=== PATIENT | female | born 1935 | race African-American/Black ===

== ENCOUNTER 2022-08-10 04:00 | Inpatient (IN) | payer MEDICARE, OTHER ==
[~2022-08-10] VITALS: Ht 162.6 cm; Wt 44.0 kg
--- NOTE | 2022-08-10 04:05 | NUR ---
[id number] FRM HOME "DAUGHTER FOUND PT CLEANING THE HOUSE AT 2AM WITH ALL WINDOWS OPEN. "CONCERNED ABOUT BEING COLD. HX OF DEMENTIA. PATIENT IS AAOX2. HYPOTHERMIC WITH T=84.4 RECTALLY. ATTACHED TO MONITOR. VITALS CHECKED
--- NOTE | 2022-08-10 04:26 | NUR ---
BRAVO DEE PROVIDED TO WARM UP THE PATIENT.
--- NOTE | 2022-08-10 04:26 | NUR ---
IV CANNULA G20 INSERTED ON LEFT FA. BLOOD DRAWN AND SENT TO LAB
[2022-08-10 04:48] LABS: BASOPHILS % (AUTO) 0.7 % (0.0-2.0); EOSINOPHILS % (AUTO) 0.4 % (0.0-6.0); HEMATOCRIT 38 % (33-45); HEMOGLOBIN 12.3 g/dL (11.5-14.8); LYMPHOCYTES # (AUTO) 0.3 K/uL (0.8-4.8); LYMPHOCYTES % (AUTO) 19.6 % (20.0-44.0); MEAN CORPUSCULAR HGB CONC 33 g/dl (31.0-36.0); MEAN CORPUSCULAR VOLUME 87 fL (82-100); MONOCYTES # (AUTO) 0.1 K/uL (0.1-1.30); MONOCYTES % (AUTO) 8.2 % (2.0-12.0); NEUTROPHILS # (AUTO) 1.3 K/uL (1.8-8.9); NEUTROPHILS % (AUTO) 71.1 % (43.0-81.0); PLATELET COUNT (AUTO) 173 K/uL (150-450); RED BLOOD CELL COUNT(AUTO) 4.36 MIL/uL (4.0-5.2)
[2022-08-10 04:55] LABS: WHITE BLOOD COUNT (AUTO) 1.8 K/uL (4.3-11.0)
--- NOTE | 2022-08-10 05:00 | NUR ---
CAME BACK FROM CT DEPT
[2022-08-10 05:11] LABS: CALCIUM, SERUM 9.5 mg/dL (8.5-10.1); CARBON DIOXIDE 27 mmol/L (21-32); CHLORIDE 109 mmol/L (98-107); GLUCOSE 172 mg/dL (74-106); POTASSIUM 4.2 mmol/L (3.5-5.1); SODIUM SERUM 142 mmol/L (136-145); UREA NITROGEN, BLOOD 35 mg/dL (7-18)
[2022-08-10 05:24] LABS: ALANINE AMINOTRANSFERASE 174 U/L (12-78); ALKALINE PHOSPHATASE 218 U/L (46-116); ASPARTATE AMINOTRANSFERASE 204 U/L (15-37); BILIRUBIN,DIRECT 0.2 mg/dL (0.0-0.2); BILIRUBIN,TOTAL 0.4 mg/dL (0.2-1.0); TOTAL PROTEIN, SERUM 7.7 g/dL (6.4-8.2)
--- NOTE | 2022-08-10 05:49 | NUR ---
COVID SWAB DONE AND SENT TO LAB
--- NOTE | 2022-08-10 05:58 | NUR ---
CALLED [facility] MORROW AND PAGEMikhail NEUMANN MD
[2022-08-10] MEDS ORDERED: LEVOFLOXACIN 500 MG /D5W 100ML 500 MG/100 ML PIGGYBACK IV ONE (06:00)
[2022-08-10] MEDS ORDERED: LEVOFLOXACIN 500 MG /D5W 100ML 100 ML IV ONE (06:50)
--- NOTE | 2022-08-10 07:02 | NUR ---
DR ORR ON THE PHONE WITH [facility]
--- NOTE | 2022-08-10 07:10 | NUR ---
PT FOR TRANSFER TO [place]. WAITING FOR TRANSPO. DAUGHTER MADE AWARE
--- NOTE | 2022-08-10 07:26 | NUR ---
REPORT GIVEN TO JOHNATHAN HARVEY
[2022-08-10 07:57] LABS: BAND % (MANUAL) 4 % (0.0-5.0); LYMPHOCYTES % (MANUAL) 22 % (16-48); MONOCYTES % (MANUAL) 6 % (0-11.0); NEUTROPHILS % (MANUAL) 68 (42-76)
--- NOTE | 2022-08-10 08:04 | NUR ---
POSITIVE COVID RESULT RELAYED BY SUPERVISOR STAGE CARPENTRY. MADE AWARE. WILL UPDATE [facility] OF THE INFORMATION.
--- NOTE | 2022-08-10 08:11 | NUR ---
CALLED [facility] [phone] DR. BALDWIN WILL CALL US BACK.
[2022-08-10] MEDS ORDERED: IV NS 0.9% 1,000 ML IV ONE (08:30)
--- NOTE | 2022-08-10 08:30 | NUR ---
BEN BLACK NP, SEEN PT AT BEDSIDE
[2022-08-10] MEDS ORDERED: MAG HYDROX/AL HYDROX/SIMETH 30 ML UDC PO PRN (09:00)
[2022-08-10] MEDS ORDERED: MAGNESIUM HYDROXIDE 30 ML UDC PO PRN (09:00)
[2022-08-10] MEDS ORDERED: ACETAMINOPHEN 325 MG TABLET PO PRN (09:00)
[2022-08-10] MEDS ORDERED: PANTOPRAZOLE 40 MG VIAL IV SCH (09:00)
[2022-08-10] MEDS ORDERED: Z GUARD REMEDY 4 OZ OINT TP PRN (09:00)
[2022-08-10] MEDS ORDERED: ONDANSETRON HCL/PF 4 MG/2 ML VIAL IVP PRN (09:00)
[2022-08-10] MEDS ORDERED: ZOLPIDEM TARTRATE 5 MG TABLET PO PRN (09:00)
--- NOTE | 2022-08-10 09:18 | NUR ---
TECH AT BEDSIDE FOR ULTRASOUND
[2022-08-10] MEDS ORDERED: POLY17PO4 PO (09:41)
[2022-08-10] MEDS ORDERED: KETO10DR3 EACHEYE (09:41)
[2022-08-10] MEDS ORDERED: LOSA25TA27 PO (09:41)
[2022-08-10] MEDS ORDERED: POLY15DR40 EACHEYE (09:41)
[2022-08-10] MEDS ORDERED: PILO5TAB10 PO (09:41)
[2022-08-10] MEDS ORDERED: LINA290C PO (09:41)
[2022-08-10] MEDS ORDERED: BISA10SU11 RC (09:41)
[2022-08-10] MEDS ORDERED: OMEP-99 PO (09:41)
[2022-08-10] MEDS ORDERED: MULT-24 PO (09:41)
[2022-08-10] MEDS ORDERED: MIRT-90 PO (09:41)
[2022-08-10] MEDS ORDERED: SENN-261 PO (09:41)
--- NOTE | 2022-08-10 09:46 | NUR ---
GOT BED 112-1
--- NOTE | 2022-08-10 10:01 | NUR ---
PT REPORT GIVEN TO JOHNATHAN PINEDA
--- NOTE | 2022-08-10 11:10 | NUR ---
PT TRANSFERRED TO [address] [facility] PROTOC[facility]. WARM HANDOFF GIVEN TO JOHNATHAN PINEDA.
--- NOTE | 2022-08-10 11:10 | NUR ---
DIRECTOR CLINICAL APPLICATIONS NOTES: PT RECEIVED FROM ER STAFF VIA MARYBETH, REPORT BY PHONE RECEIVED FROM JOHNATHAN DODGE. PT IS AWAKE, ALERT/ORIENTED X1-2, NAME AND PERSON. ABLE TO VERBALIZE NEEDS HOWEVER APPEARS CONFUSED AND AGITATED. VITALS WNL: BP- 127/67, HR-76, TEMP- 96.9, O2 SAT- 100%. PT HAS BEAR HUGGER DUE TO INITIAL HYPOTHERMIA AT ER, TEMP WNL AT THIS TIME, WILL CONTINUE TO REASSESS. PT IS ON 4 L OF O2 VIA NC, NO S/S OF RESPIRATORY DISTRESS NOTED. PACEMAKER NOTED AT L UPPER CHEST. TELE MONITOR READS V PACING, HR- 74. IV ACCESS AT L AC # 20, SALINE LOCKED. PT SKIN IS INTACT WITH BLE SKIN DRYNESS NOTED. PT ORIENTED TO STAFF AND UNIT BUT REFUSES TO BE CHANGED TO HOSPITAL GOWN AND STATES HOME CHILD CARE PROVIDER AND RN ARE THE DEVIL, WILL MINIMIZE STIMULI AND REORIENT PT BEFORE ANY INTERVENTION. SAFETY MEASURES IN PLACE, SIDE RAILS UP X4, BED ALARM ON, LOCKED IN LOWEST POSITION, TABLE AND CALL LIGHT WITHIN REACH;L WILL CONT WITH PLAN OF CARE DURING SHIFT.
[2022-08-10] MEDS: ENOXAPARIN SODIUM 30 MG/0.3 ML DISP.SYRIN SQ SCH (11:30)
--- NOTE | 2022-08-10 11:30 | NUR ---
PT REFUSED LOVENOX, STATES " I DON'T NEED NO SHOT, GET THAT AWAY FROM ME", MED RETURNED PER UNIT PROTOCOL.
[2022-08-10] MEDS: CEFEPIME 1 GM in IV D5W 50 ML IV SCH ×2 (12:23→21:59)
[2022-08-10] MEDS: DEXAMETHASONE SOD PHOSPHATE 10 MG/ML VIAL IV SCH (12:24)
[2022-08-10 13:00] VITALS: BP 127/68
--- NOTE | 2022-08-10 15:30 | NUR ---
PT'S IV DISLODGED, PT POSSIBLY PULLED DUE TO CONFUSION, WILL REINSERT.
[2022-08-10] MEDS ORDERED: Medication Not On Formulary EA (Ketotifen Fumarate (Alaway) 1 DROP) EACHEYE PRN (16:30)
[2022-08-10] MEDS ORDERED: POLYVINYL ALCOHOL 15 ML BOTTLE EACHEYE PRN (16:30)
[2022-08-10] MEDS ORDERED: BISACODYL SUPP (10 MG) 10 MG/SUPP.RECT SUPP.RECT RC PRN (16:30)
[2022-08-10] MEDS ORDERED: SENNOSIDES 8.6 MG TABLET PO PRN (16:30)
[2022-08-10] MEDS ORDERED: POLYETHYLENE GLYCOL 3350 17 GM POWD.PACK PO PRN (16:30)
[2022-08-10 17:00] VITALS: BP 124/63
--- NOTE | 2022-08-10 17:00 | NUR ---
INSERTED IV ACCESS AT L FA #22
--- NOTE | 2022-08-10 18:48 | NUR ---
RN CLOSING NOTES: PT IS AWAKE, ALERT/ORIENTED X1-2, NAME AND PERSON. ABLE TO VERBALIZE NEEDS HOWEVER APPEARS CONFUSED AND AGITATED AT TIMES. PT HAS BEAR HUGGER AT BEDSIDE, BUT ONLY USED AT BEGINNING OF SHIFT, TEMP IS STABLE AT 98.0. PT IS ON 4 L OF O2 VIA NC, NO S/S OF RESPIRATORY DISTRESS NOTED. PACEMAKER NOTED AT L UPPER CHEST. TELE MONITOR READS V PACING, HR- 64. IV ACCESS AT L FA# 22, RUNNING NS @ 75ML/HR. FALL AND ASPIRATION PRECAUTIONS IN PLACE. BED ALARM ON, SIDERAILS UP X4, WILL ENDORSE TO PM SHIFT.
[2022-08-10] MEDS: IV NS 0.9% 1,000 ML IV PRN (19:30)
--- NOTE | 2022-08-10 19:30 | NUR ---
PT IS AWAKE, ALERT/ORIENTED X1-2, NAME AND PERSON. ABLE TO VERBALIZE NEEDS HOWEVER APPEARS CONFUSED AND AGITATED AT TIMES. PT IS ON 4 L OF O2 VIA NC, NO S/S OF RESPIRATORY DISTRESS NOTED. PACEMAKER NOTED AT L UPPER CHEST. TELE MONITOR IN PLACE. IV ACCESS ON LFA #22, INFUSING NS @ 75ML/HR. FALL AND ASPIRATION PRECAUTIONS IN PLACE. SAFETY MEASURES IN PLACE. WILL CONTINUE PLAN OF CARE.
[2022-08-10 21:00] VITALS: BP 158/66
[2022-08-10] MEDS: MIRTAZAPINE 15 MG TABLET PO SCH (21:59)
[2022-08-11] VITALS (7 sets, daily range): BP systolic 132–155; BP diastolic 67–84
[2022-08-11] MEDS: IV NS 0.9% 1,000 ML IV PRN (05:02)
--- NOTE | 2022-08-11 06:23 | NUR ---
PT ASLEEP. AWAKEN BY CALLING HER NAME AND BY TOUCH. ALERT/ORIENTED X1-2, ABLE TO VERBALIZE NEEDS HOWEVER APPEARS CONFUSED AT TIMES. PT IS ON 4 L OF O2 VIA NC, NO S/S OF RESPIRATORY DISTRESS NOTED. PACEMAKER NOTED AT L UPPER CHEST. TELE MONITOR IN PLACE. IV ACCESS ON LFA #22, INFUSING NS @ 75ML/HR. FALL AND ASPIRATION PRECAUTIONS IN PLACE. DUE MEDS GIVEN. NEEDS ATTENDED. SAFETY MEASURES MAINTAINED. WILL ENDORSE TO NEXT NURSE ON DUTY FOR CONTINUITY OF CARE.
--- NOTE | 2022-08-11 07:15 | NUR ---
RN NOTE RECEIVED PATIENT IN BED RESTING EYE CLOSED,OPEN WHEN CALLED HER NAME,ON 4L OXYGEN VIA NASAL CANNULA,O2:96% IV SITE IS ON LEFT FOREARM INTACT PATENT ON NS IV HYDRATION 75CC/HR SAFETY MEASURE IMPLEMENT BED IN LOW POSITION AND LOCKED,BED ALARM IS ON CONTINUE TO MONITOR.
[2022-08-11 07:29] LABS: BASOPHILS % (AUTO) 0.3 % (0.0-2.0); EOSINOPHILS % (AUTO) 1.2 % (0.0-6.0); HEMATOCRIT 35 % (33-45); HEMOGLOBIN 11.1 g/dL (11.5-14.8); LYMPHOCYTES # (AUTO) 0.3 K/uL (0.8-4.8); MEAN CORPUSCULAR HGB CONC 32 g/dl (31.0-36.0); MEAN CORPUSCULAR VOLUME 87 fL (82-100); MONOCYTES # (AUTO) 0.2 K/uL (0.1-1.30); MONOCYTES % (AUTO) 10.9 % (2.0-12.0); NEUTROPHILS % (AUTO) 66.6 % (43.0-81.0); PLATELET COUNT (AUTO) 175 K/uL (150-450); RED BLOOD CELL COUNT(AUTO) 4.01 MIL/uL (4.0-5.2)
[2022-08-11 07:36] LABS: WHITE BLOOD COUNT (AUTO) 1.6 K/uL (4.3-11.0)
[2022-08-11 07:44] LABS: ALANINE AMINOTRANSFERASE 118 U/L (12-78); ALBUMIN 2.1 g/dL (3.4-5.0); ALKALINE PHOSPHATASE 167 U/L (46-116); ASPARTATE AMINOTRANSFERASE 131 U/L (15-37); BILIRUBIN,DIRECT 0.1 mg/dL (0.0-0.2); BILIRUBIN,TOTAL 0.4 mg/dL (0.2-1.0); CALCIUM, SERUM 8.4 mg/dL (8.5-10.1); CARBON DIOXIDE 26 mmol/L (21-32); CHLORIDE 112 mmol/L (98-107); CREATININE 0.7 mg/dL (0.6-1.3); MAGNESIUM 2.1 mg/dL (1.8-2.4); PHOSPHORUS 2.5 mg/dL (2.5-4.9); POTASSIUM 3.2 mmol/L (3.5-5.1); SODIUM SERUM 146 mmol/L (136-145); UREA NITROGEN, BLOOD 21 mg/dL (7-18)
[2022-08-11 07:55] LABS: CHOLESTEROL 192 mg/dL (<200); CREATINE KINASE, TOTAL 609 U/L (26-192); FERRITIN 743 ng/mL (8-388); HDL CHOLESTEROL 90 mg/dL (40-60); LDL 94 mg/dL (0-99); TRIGLYCERIDES 41 mg/dL (30-150)
[2022-08-11 07:58] LABS: GLUCOSE 49 mg/dL (74-106)
[2022-08-11] MEDS ORDERED: DEXTROSE 50%-WATER 50 ML DISP.SYRIN IV STA (08:25)
[2022-08-11 08:34] LABS: CREATINE KINASE, TOTAL 612 U/L (26-192)
[2022-08-11 08:35] LABS: ALANINE AMINOTRANSFERASE 127 U/L (12-78); ALBUMIN 2.1 g/dL (3.4-5.0); ALKALINE PHOSPHATASE 168 U/L (46-116); ASPARTATE AMINOTRANSFERASE 131 U/L (15-37); BILIRUBIN,TOTAL 0.4 mg/dL (0.2-1.0); CALCIUM, SERUM 8.4 mg/dL (8.5-10.1); CARBON DIOXIDE 27 mmol/L (21-32); CHLORIDE 113 mmol/L (98-107); CREATININE 0.8 mg/dL (0.6-1.3); POTASSIUM 3.2 mmol/L (3.5-5.1); SODIUM SERUM 146 mmol/L (136-145); UREA NITROGEN, BLOOD 21 mg/dL (7-18)
[2022-08-11] MEDS: DEXAMETHASONE SOD PHOSPHATE 10 MG/ML VIAL IV SCH (08:44)
[2022-08-11] MEDS: ENOXAPARIN SODIUM 30 MG/0.3 ML DISP.SYRIN SQ SCH (08:46)
[2022-08-11] MEDS: LOSARTAN POTASSIUM 25 MG TABLET PO SCH (09:00)
[2022-08-11] MEDS: PANTOPRAZOLE 40 MG/PACK PACK PO SCH (09:00)
[2022-08-11] MEDS: MULTIVITAMINS,THERAGRAN 1 UDTAB TABLET PO SCH (09:00)
--- NOTE | 2022-08-11 09:00 | NUR ---
RN NOTE RECEIVED CRITICAL LAB AT 0800 PT GLUCOSE 48,AT 0802 CHECKED BS BY SELF 39,CALLED DR RECEIVED ORDER FOR D50 IV NOTED AND AND CARRIED OUT.
--- NOTE | 2022-08-11 09:10 | NUR ---
RN NOTE PATENT BS CHECKED AT 810 172 RECHECKED AGAIN AT 823 210 CONTINUE TO MONITOR,PATIENT ANXIOUS REMOVE HER IV LINE,VERY ANXIOUS,AGITATED,PATIENT DAUGHTER CALLED SPOKE WITH HER UPDATED HER MEDICAL CONDITION,CONTINUE TO MONITOR.
[2022-08-11 09:16] LABS: GLUCOSE 48 mg/dL (74-106)
--- NOTE | 2022-08-11 09:30 | NUR ---
PATIENT REFUSED TO TAKE MEDIACTIONS, NOTIFIED
[2022-08-11] MEDS: IV D5/ 0.9% NACL 1,000 ML IV PRN ×2 (10:58→21:52)
[2022-08-11] MEDS ORDERED: POTASSIUM CHLORIDE 20 MEQ POWDER PACKET PO ONE (11:00)
[2022-08-11] MEDS: CEFEPIME 1 GM in IV D5W 50 ML IV SCH ×2 (11:04→20:34)
[2022-08-11] MEDS: POTASSIUM CL. PREMIX PERIPHER. 50 ML IV SCH ×4 (12:00→15:31)
[2022-08-11 16:00] LABS: BAND % (MANUAL) 2 % (0.0-5.0); EOSINOPHILS % (MANUAL) 2 % (0-4); LYMPHOCYTES % (MANUAL) 20 % (16-48); MONOCYTES % (MANUAL) 8 % (0-11.0)
[2022-08-11 16:01] LABS: NEUTROPHILS % (MANUAL) 68 (42-76)
[2022-08-11] MEDS: ENSURE ENLIVE 237 ML LIQUID (VANILLA) PO SCH ×2 (16:30→17:23)
[2022-08-11] MEDS ORDERED: ENSURE ENLIVE CHOC 237 ML CAN PO SCH (16:30)
[2022-08-11] MEDS: APIXABAN 2.5 MG TABLET PO SCH ×2 (17:00→17:18)
[2022-08-11] MEDS: BLOOD SUGAR DIAGNOSTIC 1 EACH STRIP IN SCH ×2 (17:23→22:30)
--- NOTE | 2022-08-11 17:37 | NUR ---
RN NOTE PATIENT REFUSED ENSURE AND ELIQUIS WHEN GAVE TO HER SHE SPIT ON MY FACE,SHE PULLED OUT HER IV LINE NOTIFIED MD CONTINUE TO MONITOR.
--- NOTE | 2022-08-11 18:33 | NUR ---
PATIENT VERY AGITATED TRIED IV RIGHT HAND,PT. PULLED RN WILIAM MURRIETA,DAUGHTER REQUESTING TO CALM DOWN HER MOM,DR. RAINES NOTIFIED OK TO MIDLINE AND RESTRAIN PT. OK FOR DAUGHTER TO VISIT MOTHER FOR 15 MINUTES TO CALM DOWN PT WITH FULL PPE.NURSING SUP NOTIFIED.
--- NOTE | 2022-08-11 18:50 | NUR ---
RN NOTE INSERTED A NEW IV LINE ON RIGHT FOREARM #22 WITH GOOD BLOOD RETURN,DAUGHTER ON HER BEDSIDE,CONTINUE TO MONITOR.
--- NOTE | 2022-08-11 19:14 | NUR ---
RN NOTE PATIENT REMAINS CONFUSED,VERBALLY RESPONSIVE ON 2L OXYGEN VIA NASAL CANNULA,O2:98% IV SITE IS ON RIGHT FOREARM INTACT PATENT,ON NSD5 HYDRATION 75CC/HR,SAFETY MEASURE IMPLEMENT BED IN LOW POSITION AND LOCKED,HEAD OF THE BED ELEVATED,SOFT BILATERAL WRIST RESTRAIN IN PLACE,DAUGHTER AGREE WITH RESTRAINS,ENDORSE NEXT COMING SHIFT FOR CONTINUATION OF CARE.
[2022-08-11] MEDS: MIRTAZAPINE 15 MG TABLET PO SCH (21:31)
[2022-08-12] VITALS: BP 159/79
[2022-08-12 04:00] VITALS: BP 122/55
--- NOTE | 2022-08-12 06:48 | NUR ---
RN CLOSING NOTE PATIENT IN BED, SLEEPING AT THIS TIME, ON 2L OXYGEN VIA NASAL CANNULA WITH OPTIMAL O2 STA DURING THE NIGHT, FIGHTING, SCRATCHING, AND BITTING WHENEVER ATTEMPT TO TAKE VITAL SINGS AND CLEANING, ON BILATERAL RESTRAINS IN PLACED, CIRCULATION WNL, FREQUENT CHECKS DONE, IV SITE IS ON RIGHT FOREARM INTACT PATENT, ANOTHER IV INSERTED ON LEFT HAND 22G PATENT AND INTACT, ON D5 NS 75CC/HR, ALL SAFETY MEASURE MAINTAINED, BED LOCKED AND IN LOWEST POSITION, WILL ENDORSE CONTINUITY OF CARE TO ONCOMING NURSE, DAUGHTER CALLED THIS MORNING, SHE WANTS MOTHER OUT OF THIS HOSPITAL TRANSFER TO [place], WILL ENDORSE TO NEXT SHIFT.
--- NOTE | 2022-08-12 07:10 | NUR ---
RN OPENING NOTE PATIENT IN BED, SLEEPING AT THIS TIME, ON 2L OXYGEN VIA NASAL CANNULA. PER NIGHTSHIFT RN OLGA, PATIENT FIGHTING, SCRATCHING, AND BITTING WHENEVER ATTEMPT TO TAKE VITAL SINGS AND CLEANING. ON BILATERAL RESTRAINS, DISTAL CIRCULATION WITHIN NORMAL LIMITS. IV ACCESS ON RIGHT FOREARM INTACT PATENT, ANOTHER IV INSERTED ON LEFT HAND 22G PATENT AND INTACT, ON D5 NS 75CC/HR. ALL SAFETY MEASURES IMPLEMENTED, BED LOCKED AND IN LOWEST POSITION. PER [facility]SHIFT RN, PATIENTS DAUGHTER WANTS TRANSFER TO [facility], WILL FOLLOW UP WITH CASE MANAGEMENT. WILL CONTINUE PLAN OF CARE AND ANTICIPATE NEEDS.
[2022-08-12 08:00] VITALS: BP 145/68
[2022-08-12] MEDS: ENSURE ENLIVE 237 ML LIQUID (VANILLA) PO SCH (08:00)
[2022-08-12] MEDS: BLOOD SUGAR DIAGNOSTIC 1 EACH STRIP IN SCH ×3 (08:00→16:33)
[2022-08-12 08:06] LABS: BASOPHILS % (AUTO) 0.1 % (0.0-2.0); EOSINOPHILS % (AUTO) 0.1 % (0.0-6.0); HEMATOCRIT 29 % (33-45); HEMOGLOBIN 9.5 g/dL (11.5-14.8); LYMPHOCYTES # (AUTO) 0.4 K/uL (0.8-4.8); LYMPHOCYTES % (AUTO) 9.1 % (20.0-44.0); MEAN CORPUSCULAR HGB CONC 33 g/dl (31.0-36.0); MEAN CORPUSCULAR VOLUME 87 fL (82-100); MONOCYTES # (AUTO) 0.6 K/uL (0.1-1.30); MONOCYTES % (AUTO) 14.4 % (2.0-12.0); NEUTROPHILS # (AUTO) 3.2 K/uL (1.8-8.9); NEUTROPHILS % (AUTO) 76.3 % (43.0-81.0); PLATELET COUNT (AUTO) 166 K/uL (150-450); RED BLOOD CELL COUNT(AUTO) 3.33 MIL/uL (4.0-5.2); WHITE BLOOD COUNT (AUTO) 4.2 K/uL (4.3-11.0)
[2022-08-12] MEDS: APIXABAN 2.5 MG TABLET PO SCH ×2 (08:28→16:00)
[2022-08-12] MEDS: LOSARTAN POTASSIUM 25 MG TABLET PO SCH (08:28)
[2022-08-12] MEDS: PANTOPRAZOLE 40 MG/PACK PACK PO SCH (08:28)
[2022-08-12] MEDS: MULTIVITAMINS,THERAGRAN 1 UDTAB TABLET PO SCH (08:29)
--- NOTE | 2022-08-12 08:29 | NUR ---
PATIENT UNWILLING TO TAKE ANYTHING ORALLY. OFFERED SIPS OF WATER PATIENT GRITS TEETH AND TURNS AWAY. TRIED TO PROVIDE TEACHING ON THE IMPORTANCE OF MEDICATIONS AND EATING, HOWEVER PATIENT UNABLE TO COMPREHEND TEACHING DUE TO MENTAL STATUS. WILL CONTINUE PLAN OF CARE.
[2022-08-12 08:30] LABS: CALCIUM, SERUM 6.4 mg/dL (8.5-10.1); CREATININE 0.7 mg/dL (0.6-1.3); MAGNESIUM 1.5 mg/dL (1.8-2.4); PHOSPHORUS 1.6 mg/dL (2.5-4.9); POTASSIUM 3.5 mmol/L (3.5-5.1)
[2022-08-12] MEDS: DEXAMETHASONE SOD PHOSPHATE 10 MG/ML VIAL IV SCH (08:33)
[2022-08-12] MEDS: CEFEPIME 1 GM in IV D5W 50 ML IV SCH (08:33)
--- NOTE | 2022-08-12 08:50 | NUR ---
DR. BATISTA SEEN AND EVALUATED PT. INCREASE IV RATE TO 100ML/HR,PT. REFUSE TO EAT AND DRINK.
[2022-08-12] MEDS ORDERED: DEXTROSE 50%-WATER 50 ML DISP.SYRIN IVP ONE (09:30)
[2022-08-12] MEDS: Magnesium 1GM/D5W 100ML PREMIX 100 ML IV SCH ×2 (09:37→11:13)
[2022-08-12] MEDS: POTASSIUM PHOSPHATE MM 7.5 MMOL in IV NS 0.9% 100 ML IV SCH ×2 (09:39→12:57)
[2022-08-12] MEDS ORDERED: NEUTRA PHOS 1 POWD.PACKET PO SCH (10:00)
[2022-08-12] MEDS ORDERED: Magnesium 1GM/D5W 100ML PREMIX 100 ML IV SCH (10:00)
[2022-08-12] MEDS ORDERED: POTASSIUM CHLORIDE 20 MEQ TAB.PRT.SR PO SCH (10:00)
[2022-08-12 10:14] LABS: ALANINE AMINOTRANSFERASE 76 U/L (12-78); ALKALINE PHOSPHATASE 113 U/L (46-116); ASPARTATE AMINOTRANSFERASE 82 U/L (15-37); BILIRUBIN,TOTAL 0.3 mg/dL (0.2-1.0); CARBON DIOXIDE 18 mmol/L (21-32); CHLORIDE 123 mmol/L (98-107); CREATININE 0.7 mg/dL (0.6-1.3); POTASSIUM 3.3 mmol/L (3.5-5.1); SODIUM SERUM 150 mmol/L (136-145); TOTAL PROTEIN, SERUM 4.1 g/dL (6.4-8.2); UREA NITROGEN, BLOOD 13 mg/dL (7-18)
[2022-08-12] MEDS ORDERED: IV D5/0.45 NACL 1,000 ML IV SCH (10:30)
[2022-08-12 10:59] LABS: ALBUMIN 1.4 g/dL (3.4-5.0); CALCIUM, SERUM 5.8 mg/dL (8.5-10.1); GLUCOSE 44 mg/dL (74-106)
[2022-08-12 12:00] VITALS: BP 147/66
--- NOTE | 2022-08-12 15:08 | NUR ---
spoke with francis from [facility],they will try to transfer ptLori paulino [facility] today.
[2022-08-12 16:00] VITALS: BP 145/106
--- NOTE | 2022-08-12 17:17 | NUR ---
PATIENTS DAUGHTER AT THE BEDSIDE. EXPLAINED TO HER THAT HER MOTHER WILL BE TRANSFERRED TO [facility] ONCE [facility] HAS AN AVAILABLE BED AND ONCE CASE MANAGEMENT HAS SECURED PROPER TRANSPORTATION. EXPLAINED DISCHARGE INSTRUCTIONS AND ATTEMPTED TO GET THE DAUGHTER TO SIGN DISCHARGE PAPERWORK AND PATIENT BELONGINGS LIST. THE DAUGHTER REFUSED TO SIGN AT THIS TIME STATING THAT SHE WOULD LIKE TO SPEAK WITH HER MOTHER'S RUBBER MIXER.
--- NOTE | 2022-08-12 17:27 | NUR ---
ATTEMPTED TO GET PATIENTS DAUGHTER TO SIGN "TRANSFER CONSENT" FORM TO ALLOW FOR HER MOTHER TO BE TRANSFERRED TO [facility]. THE DAUGHTER TOOK A PICTURE OF THE FORM WITH HER PHONE AND EXPLAINED THAT SHE WILL SIGN ONCE SHE "HAS MORE INFORMATION". THE DAUGHTER THEN LEFT THE BEDSIDE AND EXITED THE UNIT.
--- NOTE | 2022-08-12 18:37 | NUR ---
REPORT CALLED TO RECEIVING NURSE AT [facility].
--- NOTE | 2022-08-12 18:39 | NUR ---
REPORT GIVEN TO NIGHTSHIFT RN. PATIENT IS TO BE TRANSFERRED TO [facility] DURING NIGHTSHIFT. REPORT ALREADY CALLED FOR CONTINUATION OF CARE.
--- NOTE | 2022-08-12 18:58 | NUR ---
[facility] CREW HAS ARRIVED TO TRANSPORT PATIENT TO [facility]. FLUIDS DISCONNECTED, IV ACCESS WILL REMAIN FOR CONTINUATION OF CARE. PATIENT LEFT FACILITY WITH AMBULANCE CREW IN STABLE CONDITION.
--- NOTE | 2022-08-12 19:07 | NUR ---
daughter Tara notified VIA PHONE [place] [facility]
== END 2022-08-12 18:15 | disposition short-term general hospital (02) | DRG 871 ==
LOC: ER 04:02 → TELE1 10:43 → TELE-TD 08-11 20:50 → TELE1 08-12 14:49
PROVIDERS: ADMIT Nurse Practitioner Acute Care
PROC: 05HA33Z Insertion of Infusion Device into Left Brachial Vein, Percutaneous Approach (ICD-10-PCS; principal; 2022-08-12)
DX: A41.89 Other specified sepsis (principal); G92.8 Other toxic encephalopathy; J12.82 Pneumonia due to coronavirus disease 2019; U07.1 COVID-19; J18.9 Pneumonia, unspecified organism; J15.6 Pneumonia due to other Gram-negative bacteria; N17.9 Acute kidney failure, unspecified; D68.59 Other primary thrombophilia; E87.0 Hyperosmolality and hypernatremia; F03.90 Unspecified dementia, unspecified severity, without behavioral disturbance, psychotic disturbance, mood disturbance, and anxiety; I10 Essential (primary) hypertension; Z88.0 Allergy status to penicillin; Z78.9 Other specified health status; Z91.048 Other nonmedicinal substance allergy status; Z79.899 Other long term (current) drug therapy; R65.20 Severe sepsis without septic shock; R74.01 Elevation of levels of liver transaminase levels; R74.8 Abnormal levels of other serum enzymes; E86.0 Dehydration; F09 Unspecified mental disorder due to known physiological condition; Z95.0 Presence of cardiac pacemaker; D72.819 Decreased white blood cell count, unspecified; E87.6 Hypokalemia; Z88.2 Allergy status to sulfonamides; Z88.8 Allergy status to other drugs, medicaments and biological substances
CPT/HCPCS: 36415; 70450-TC; 71045-TC; 72170-TC; 76700-TC; 80048-TC; 80053-TC; 80061-TC; 80076-TC; 82550-TC; 82553; 82728-TC; 82962-TC; 83605-TC; 83615-TC; 83735-TC; 83880; 84100-TC; 84484-TC; 85025-TC; 85378-TC; 86140-TC; 87040-TC; 87081-TC; C9113; C9803; G0378; J0692; J1100; J1650; J1956; J3475; J3480; J3490; J7030; J7042; J7050; J7060